=== PATIENT | female | born 1980 | race Two or more races ===

== ENCOUNTER 2024-02-23 10:54 | Outpatient (AMB) | payer OTHER, SELFPAY ==
--- NOTE | 2024-02-23 10:56 | MHC.OFFVIS ---
Vital Signs 02/23/24 11:06 Height 5 ft 6 in Weight 156 lb BMI 25.2 BP 113/54 L Blood Pressure Location Lt brachial Position Sitting Pulse 69 Intake Visit Reasons: abdominal pain Intake Note: Patient new consult for abdominal pain. Patient cc: abdominal pain with bloating, acid reflex with burning sensation, constipation on and off. Denies any other GI issues. Government Minister Required: No Accompanied by: Self / Same As Patient Allergies No Known Allergies Allergy (Verified 02/23/24 10:56) Medication List - Last Reconciled 02/23/24 by Rachel Hernandez MD No Known Home Meds HPI HPI abdominal pain : Details: GI clinic visit for this 43 YF referred by SONNY Ray for evaluation of abdominal pain TODAY'S VISIT: Patient cc: abdominal pain with bloating, acid reflex with burning sensation, constipation on and off. Abdominal discomfort - attributes to what she was eating Feels bloated and full every time she eats. Thought she had ulcers She was taking probiotics and a natural medicine and stopped after 2 weeks Prescribed Famotidine and has not started taking it yet. Feela a heaviness from the chest to the lower abdomen - around the belly button. Stopped eating spicy food - taking oatmeal and healthy foods Drinking something hot or warm makes her feel better. Intermittent heartburn radiating into the chest and throat. Patient denies symptoms of dysphagia, nausea, vomiting, change in weight. Appetite is less and has early satiety. Chronic constipation since she had her 3rd child. Has a BM 2-3 times a day - has hard stools with incomplete evacuation. Takes fibre, bailey seeds and oatmeal. Denies recent change in bowel habits, black stools or rectal bleeding. Patient denies major cardiac or pulmonary problems, loud snoring or sleep apnea Noted SOB and palpitations the day after she had surgery with anesthesia in the past. Had a 2nd surgery without any complications. Denies being on chronic anticoagulation. Patient denies known family history of PUD, colon polyps, colon cancer or other GI malignancies. Aunt recently diagnosed with gallstones Had vaginal polyps removed a year and a half ago Had an US 2 years ago - normal per patient PAST EGD/COLONOSCOPY: Never had an EGD or a colonoscopy LABS IN [facility] : None in [facility] IMAGING STUDIES: None - report of abdominal US requested from PCP's office PAST GI HISTORY BY REVIEW OF MEDICAL RECORDS: Pt was seen by her PCP on 01/12/24 with intermittent nausea, abdominal pain and bloating for the past few months. Patient complained of discomfort and burning in the epigastric area radiating up when she laid down. Patient has been unable to fast due to abdominal pain and discomfort. Patient noted symptoms of chest pain on lying down. Patient reported she has been eating a lot of tomatoes. Chronic constipation - managed with diet, probiotics and fiber. Pt was prescribed Famotidine 20 mg H Pylori breath test was ordered [facility] Surgical History (Updated 02/23/24 @ 11:03 by Risa Garcia) Hx of cervical biopsy Hx of dilation and curettage Family History (Updated 02/23/24 @ 11:04 by Risa Garcia) Mother Diabetes Social History Household Members: Family Alcohol intake: never Patient Tobacco Use Status: Never used Tobacco Review of Systems Const Denies fever(s), Denies headache(s) and Denies weight loss Eyes Denies eye discharge and Denies irritation ENT Reports Normal hearing present, Denies dysphagia, Denies dizziness, Denies headache(s) and Reports sore throat Card Reports chest pain, Denies leg edema and Denies dyspnea on exertion Resp Denies cough, Denies dyspnea on exertion and Denies wheezing GI Reports abdominal pain, Reports bloating, Denies change in bowel habits, Reports constipation, Denies dysphagia, Reports early satiety, Reports heartburn, Reports diarrhea and Reports other (loss of appetite) Denies difficulty voiding, Denies dysuria and Reports other (LMP 02/14/24) Musc Denies back pain and Denies arthralgias Skin/Breast Denies pruritus, Denies rash and Denies jaundice Neuro Reports Normal hearing present, Denies Abnormal speech present, Denies dizziness, Denies headache(s) and Denies seizure-like activity Psych Denies anxiety, Denies depression and Denies panic attacks Endo Denies cold intolerance, Denies flushing and Denies heat intolerance [place]/Lymph Denies easy bleeding and Denies easy bruising Aller/Immun Denies wheezing Physical Exam Const General: healthy appearing and no acute distress Nutritional Appearance: average body habitus Orientation/consciousness: patient oriented x3 Limitations: no limitations HEENT Head: Yes normal to inspection Ears: hearing grossly normal bilaterally Eyes Sclerae: sclerae normal Pupils: Equal, round and reactive pupils present Neck Neck: Yes normal visual inspection Chest Chest palpation & inspection: normal inspection of the chest Resp Effort & Inspection: normal respiratory effort Auscultation: clear to auscultation bilaterally Cardio Palpation: normal PMI Rate: regular rate Rhythm: regular rhythm Heart sounds: S1 normal heart sound present, S2 normal heart sound present and no murmurs GI Palpation (GI): Soft to palpation, nontender and No hepatosplenomegaly present Auscultation: normal bowel sounds Rectal Exam - Female: deferred Skin General skin exam: no rashes or lesions noted Neuro General: patient oriented x3, gait normal and moves all extremities Cranial nerves: Yes Equal, round and reactive pupils present and Yes Normal hearing present Speech: No Abnormal speech present Psych Appearance: grossly normal Mental Status: mental status grossly normal Assessment & Plan Assessment & Plan (1) Abdominal pain: Code(s): R10.9 - Unspecified abdominal pain Category: Medical (2) GERD (gastroesophageal reflux disease): Code(s): K21.9 - Gastro-esophageal reflux disease without esophagitis Category: Medical (3) Early satiety: Code(s): R68.81 - Early satiety Category: Medical (4) Chronic constipation: Code(s): K59.09 - Other constipation Category: Medical (5) Abdominal bloating: Code(s): R14.0 - Abdominal distension (gaseous) Category: Medical Plan 43 YF referred by SONNY Ray for evaluation of GERD, early satiety, abdominal pain, bloating and chronic constipation Her UGI symptoms may be due to non-ulcer dyspepsia, celiac sprue, PUD and worsened by constipation Pt advised labs and a gastric emptying study Famotidine 20 mg at bedtime - increase to twice a day if symptoms persist. [place] of Miralax daily x 2 weeks for constipation to see if UGI symptoms improve To proceed with gastric emptying study and an EGD if symptoms persist. FU in 3 months Orders: Orders Complete Blood Count Auto Diff Today K21.9 - Gastro-esophageal reflux disease without esophagitis, K59.09 - Other constipation, R10.9 - Unspecified abdominal pain, R14.0 - Abdominal distension (gaseous) Lipase Today K21.9 - Gastro-esophageal reflux disease without esophagitis, K59.09 - Other constipation, R10.9 - Unspecified abdominal pain, R14.0 - Abdominal distension (gaseous) Vitamin B12 and Folate Today K21.9 - Gastro-esophageal reflux disease without esophagitis, K59.09 - Other constipation, R10.9 - Unspecified abdominal pain, R14.0 - Abdominal distension (gaseous) Immunoglobulin A Today K21.9 - Gastro-esophageal reflux disease without esophagitis, K59.09 - Other constipation, R10.9 - Unspecified abdominal pain, R14.0 - Abdominal distension (gaseous) Transglutaminase Ab IgG Today K21.9 - Gastro-esophageal reflux disease without esophagitis, K59.09 - Other constipation, R10.9 - Unspecified abdominal pain, R14.0 - Abdominal distension (gaseous) Comprehensive Met. Panel Today K21.9 - Gastro-esophageal reflux disease without esophagitis, K59.09 - Other constipation, R10.9 - Unspecified abdominal pain, R14.0 - Abdominal distension (gaseous) Transglutaminase IgA Today K21.9 - Gastro-esophageal reflux disease without esophagitis, K59.09 - Other constipation, R10.9 - Unspecified abdominal pain, R14.0 - Abdominal distension (gaseous) NM gastric emptying study Today R68.81 - Early satiety Medications: New polyethylene glycol 3350 (Miralax) 17 grams PO DAILY 30 days 510 grams 3RF K59.09 - Other constipation famotidine (Pepcid) 20 mg PO BID 30 days 60 tabs 3RF K21.9 - Gastro-esophageal reflux disease without esophagitis Coding Level of Care Code New Pt Level 4 (83892) Diagnoses Abdominal pain R10.9 GERD (gastroesophageal reflux disease) K21.9 Early satiety R68.81 Chronic constipation K59.09 Abdominal bloating R14.0 Time Spent (min) 21
[2024-02-23 11:06] VITALS: BP 113/54; PULSE 69; BMI 25.2
== END 2024-02-23 11:46 | disposition home or self-care (01) ==
PROVIDERS: PCP Physician Assistant Medical; Visit Provider Internal Medicine Gastroenterology
DX: R10.9 Unspecified abdominal pain (principal); K21.9 Gastro-esophageal reflux disease without esophagitis; R68.81 Early satiety; K59.09 Other constipation; R14.0 Abdominal distension (gaseous)
CPT/HCPCS: 99204

== ENCOUNTER → 2024-02-23 10:54 | Outpatient (BNVA) | payer OTHER, SELFPAY | PROVIDERS: PCP Physician Assistant Medical; Visit Provider Internal Medicine Gastroenterology | DX: R10.9 Unspecified abdominal pain (principal); K21.9 Gastro-esophageal reflux disease without esophagitis; K59.09 Other constipation; R68.81 Early satiety; R14.0 Abdominal distension (gaseous) | CPT/HCPCS: 99202 ==